=== PATIENT | male | born 1970 | race Caucasian/White ===

== ENCOUNTER 2025-06-02 09:43 | Inpatient (IN) | payer MEDICAID, OTHER ==
[~2025-06-02] VITALS: Ht 167.6 cm; Wt 76.2 kg
[2025-06-02 10:24] LABS: HEMATOCRIT. 38.9 % (42.0-52.0); HEMOGLOBIN. 12.8 g/dL (14.0-18.0); MEAN PLATELET VOLUME 6.9 fl (7.4-10.4); PLATELET 301 x1000/uL (130-400); RED BLOOD CELL COUNT 4.35 mill/uL (4.7-6.1); RED CELL DISTRIBUTION WIDTH 15.4 % (11.6-14.6)
[2025-06-02] MEDS: MORPHINE SULFATE 4 MG/ML INJ (FOR IV/IM USE) IV ONE (10:24)
[2025-06-02 10:50] LABS: CREATININE 0.6 mg/dL (0.6-1.3); UREA NITROGEN BLOOD 13 mg/dL (9-23)
[2025-06-02 10:51] LABS: TROPONIN I HIGH SENSITIVITY 4 ng/L (3.0-53)
[2025-06-02 11:02] LABS: BAND% 6.0 % (1.0-6.0); BASOPHILS % MANUAL 1.0 % (0.0-2.0); EOSINOPHILS % MANUAL 1.0 % (0.0-5.0); LYMPHOCYTES % MANUAL 9.0 % (20.0-50.0); METAMYELOCYTES % 4.0 % (0-0); MONOCYTES % MANUAL 9.0 % (2.0-8.0); NEUTROPHILS % MANUAL 70.0 % (45.0-75.0); PLATELET ESTIMATE NORMAL
[2025-06-02 12:31] LABS: TROPONIN I HIGH SENSITIVITY 4 ng/L (3.0-53)
[2025-06-02] MEDS ORDERED: ACETAMINOPHEN 325MG TABLET PO PRN (13:00)
[2025-06-02] MEDS ORDERED: IPRATROPIUM/ALBUTEROL 0.5-3(2.5)MG/3ML NEB HHN PRN (13:00)
[2025-06-02] MEDS ORDERED: ONDANSETRON HCL 4MG/2ML INJ IV PRN (13:00)
[2025-06-02] MEDS ORDERED: DOCUSATE SODIUM 100MG CAPSULE PO PRN (13:00)
[2025-06-02 14:00] VITALS: BP 169/91; PULSE 50; RESP 18; TEMP 35.6; O2SAT 99
[2025-06-02] MEDS: PANTOPRAZOLE SODIUM 40 MG/VIAL IV SCH (14:27)
[2025-06-02] MEDS: ASPIRIN 81MG TABLET PO SCH (14:28)
[2025-06-02] MEDS: ISOSORBIDE MONONITRATE 30MG TABLET SR 24HR PO SCH (14:29)
[2025-06-02] MEDS: HYDRALAZINE HCL 25MG TABLET PO SCH (14:30)
[2025-06-02] MEDS: ENOXAPARIN 40MG/0.4ML SYR SUBCUT SCH (14:31)
[2025-06-02 16:00] VITALS: BP 140/88; PULSE 58; RESP 18; TEMP 36.5; O2SAT 96
[2025-06-02 16:53] LABS: CREATINE KINASE MB FRACTION 3.4 ng/mL (0.5-3.6)
[2025-06-02 16:54] LABS: TROPONIN I HIGH SENSITIVITY 4.0 ng/L (3.0-53)
[2025-06-02 20:00] VITALS: BP 128/82; PULSE 72; RESP 18; TEMP 36.4; O2SAT 96
[2025-06-02] MEDS: HYDRALAZINE 20MG/ML VIAL IV PRN (21:04)
[2025-06-02] MEDS: ATORVASTATIN CALCIUM 40MG TABLET PO SCH (21:04)
[2025-06-02] MEDS: ACETAMINOPHEN 325MG TABLET PO PRN (21:05)
[2025-06-03] VITALS: BP 94/64; PULSE 99; RESP 18; TEMP 37.1; O2SAT 96
[2025-06-03 01:02] LABS: CREATINE KINASE MB FRACTION 2.1 ng/mL (0.5-3.6); TROPONIN I HIGH SENSITIVITY 4.0 ng/L (3.0-53)
[2025-06-03 04:00] VITALS: BP 136/82; PULSE 99; RESP 20; TEMP 37.1; O2SAT 96
[2025-06-03 08:00] VITALS: BP 142/82; PULSE 75; RESP 18; TEMP 36.4; O2SAT 96
[2025-06-03] MEDS ORDERED: VERAPAMIL HCL 2.5 MG/1 ML 2ML VIAL IV ONE (11:14)
[2025-06-03] MEDS ORDERED: HEPARIN 1000 UNITS/ML 10ML ONE (11:14)
[2025-06-03] MEDS ORDERED: LIDOCAINE HCL 1% 10 MG/ML 10ML VIAL ONE (11:15)
[2025-06-03] MEDS ORDERED: IODIXANOL 320MG/ML 100 ML BOTTLE IV ONE (11:15)
[2025-06-03] MEDS ORDERED: FENTANYL CITRATE/PF 50MCG/ML 2ML VIAL ONE (11:55)
[2025-06-03] MEDS ORDERED: MIDAZOLAM HCL 2 MG/2 ML VIAL ONE (11:55)
[2025-06-03] MEDS ORDERED: DIPHENHYDRAMINE 50MG/ML VIAL ONE (11:55)
[2025-06-03] MEDS ORDERED: ATROPINE SULFATE 1MG/10ML SYR IV PRN (12:45)
[2025-06-03] MEDS ORDERED: ACETAMINOPHEN 325MG TABLET PO PRN (12:45)
[2025-06-03 13:03] LABS: INR 1.0
[2025-06-03 16:00] VITALS: BP 160/97; PULSE 92; RESP 20; TEMP 36.1; O2SAT 98
[2025-06-03] MEDS: ISOSORBIDE MONONITRATE 30MG TABLET SR 24HR PO SCH (17:02)
[2025-06-03] MEDS: LOSARTAN 25 MG TABLET PO SCH (17:10)
[2025-06-03 20:00] VITALS: BP 113/67; PULSE 121; RESP 18; TEMP 36.5; O2SAT 96
[2025-06-03] MEDS: ATORVASTATIN CALCIUM 20MG TABLET PO SCH (22:30)
[2025-06-04] VITALS: BP 92/52; PULSE 111; RESP 21; TEMP 37.1; O2SAT 96
[2025-06-04 04:00] VITALS: BP 103/59; PULSE 114; RESP 18; TEMP 36.6; O2SAT 99
[2025-06-04 06:27] LABS: BASOPHILS % 0.5 % (0.0-2.0); EOSINOPHILS % 0.4 % (0.0-5.0); HEMATOCRIT. 37.9 % (42.0-52.0); HEMOGLOBIN. 12.6 g/dL (14.0-18.0); LYMPHOCYTES % 19.7 % (20.0-50.0); MEAN PLATELET VOLUME 7.0 fl (7.4-10.4); MONOCYTES % 4.5 % (2.0-8.0); NEUTROPHILS % 74.9 % (40.0-76.0); PLATELET 280 x1000/uL (130-400); RED BLOOD CELL COUNT 4.24 mill/uL (4.7-6.1); RED CELL DISTRIBUTION WIDTH 16.4 % (11.6-14.6)
[2025-06-04 06:34] LABS: CREATININE 1.0 mg/dL (0.6-1.3); UREA NITROGEN BLOOD 18 mg/dL (9-23)
[2025-06-04 08:00] VITALS: BP 102/58; PULSE 121; RESP 18; TEMP 36.2; O2SAT 99
[2025-06-04] MEDS: ISOSORBIDE MONONITRATE 60MG TABLET SR 24HR PO SCH (09:00)
[2025-06-04] MEDS ORDERED: ATOR20TA PO (11:41)
[2025-06-04] MEDS ORDERED: ASPI-1160 PO (11:41)
[2025-06-04] MEDS ORDERED: HYDR25TA78 PO (11:41)
[2025-06-04] MEDS ORDERED: ISOS60TA76 PO (11:41)
[2025-06-04] MEDS ORDERED: LOSA25TA26 PO (11:41)
[2025-06-04 12:59] VITALS: BP 102/57; PULSE 114; TEMP 97.1; O2SAT 95
== END 2025-06-04 13:58 | disposition home or self-care (01) | DRG 191 ==
LOC: ER 09:43 → 5WST 11:37 → EDBEDREQ 11:42 → EDBEDREQTM 11:42 → ENRESERV 12:03
PROVIDERS: ADMIT Internal Medicine; ATTEND Internal Medicine
PROC: 4A023N7 Measurement of Cardiac Sampling and Pressure, Left Heart, Percutaneous Approach (ICD-10-PCS; principal; 2025-06-03)
PROC: B211YZZ Fluoroscopy of Multiple Coronary Arteries using Other Contrast (ICD-10-PCS; 2025-06-03)
DX: I25.110 Atherosclerotic heart disease of native coronary artery with unstable angina pectoris (principal); E11.9 Type 2 diabetes mellitus without complications; I16.0 Hypertensive urgency; I10 Essential (primary) hypertension
CPT/HCPCS: 36415; 71045; 80048; 82550; 82553; 83880; 84484; 85025; 93005; 93306; 93458; 96374; 99285; A4606; C1769; C1887; C1893; J0360; J1200; J1644; J1650; J2003; J2250; J2270; J2470; J3010; J3490; Q9967